=== PATIENT | female | born 1965 | race Two or more races ===

== ENCOUNTER 2025-10-08 07:22 | Emergency (ER) | payer OTHER ==
[~2025-10-08] VITALS: Ht 172.7 cm; Wt 61.2 kg
[2025-10-08] MEDS ORDERED: 0.9 % SODIUM CHLORIDE 1,000 ML IV ONE ×2 (07:45→08:15)
[2025-10-08] MEDS ORDERED: FAMOTIDINE/PF 20 MG/2 ML VIAL IV ONE ×2 (07:45→08:15)
[2025-10-08] MEDS ORDERED: CEFTRIAXONE SODIUM 1,000 MG VIAL IV ONE (08:15)
[2025-10-08] MEDS ORDERED: METHYLPREDNISOLONE SOD SUCC 125 MG VIAL IV ONE (08:15)
[2025-10-08] MEDS ORDERED: KETOROLAC TROMETHAMINE 30 MG VIAL IV ONE (08:15)
[2025-10-08] MEDS ORDERED: KETOROLAC TROMETHAMINE 30 MG VIAL ONE (09:40)
[2025-10-08] MEDS ORDERED: METHYLPREDNISOLONE SOD SUCC 125 MG VIAL ONE (09:41)
[2025-10-08] MEDS ORDERED: CEFTRIAXONE SODIUM 1,000 MG VIAL ONE (09:41)
[2025-10-08] MEDS ORDERED: FAMOTIDINE/PF 20 MG/2 ML VIAL ONE (09:41)
[2025-10-08 10:34] LABS: BASO % 0.2 % (0.1-1.2); EOS # 0.12 (0.04-0.54); EOS % 1.5 % (0.7-7.0); LYMPH # 0.72 (1.18-3.74); LYMPH % 9.0 % (19.3-53.1); MEAN PLATELET VOLUME 8.40 fl (9.4-12.4); MONO # 0.63 (0.24-0.82); MONO % 7.9 % (4.7-12.5); NEUT # 6.51 (1.56-6.13); NEUT % 81.2 % (34.0-71.1); RED CELL DISTRIBUTION WIDTH 11.6 % (11.6-14.4)
[2025-10-08 10:55] LABS: INR 0.98
[2025-10-08 11:00] LABS: ALT/SGPT 21.0 U/L (12-78); AST/SGOT 23.0 U/L (15-37); BILIRUBIN TOTAL 0.69 mg/dL (0.3-1.2); BUN CREA RATIO 15.0 (7.0-25.0); CREATININE SERUM 0.81 mg/dL (0.55-1.02); GFR 71.88; GLOBULINA 5.2 G/DL (2.4-3.5); GLUCOSE FASTING 99.0 mg/dL (65-100); OSMOLALITY SERUM 279.0 MOSM/KG (275-295)
[2025-10-08] MEDS ORDERED: KETO10TA2 PO (12:27)
[2025-10-08] MEDS ORDERED: MEDROLPACK PO (12:27)
== END 2025-10-08 12:45 | disposition home or self-care (01) ==
LOC: ER 07:22
PROVIDERS: General Practice
DX: K11.8 Other diseases of salivary glands (principal); K11.5 Sialolithiasis
CPT/HCPCS: 36415; 70487; Q9965